=== PATIENT | male | born 1990 | race American Indian/Alaskan Native ===

== ENCOUNTER 2021-05-04 04:21 | Emergency (ER) | payer SELFPAY ==
[2021-05-04 04:45] VITALS: BP 122/76
--- NOTE | 2021-05-04 08:00 | Emergency Department Report ---
ED General Adult HPI - General Chief complaint: Urogenital-Male Stated complaint: POSSIBLE RECTAL PROLAPSE Time Seen by Provider: 05/04/21 07:55 Source: patient Mode of arrival: Ambulatory Limitations: No Limitations - History of Present Illness Initial comments: Patient is 30-year-old F [place] male who is presenting with some discomfort at his anus. He denies any bleeding or abdominal pain. Patient states he felt like something bulging out of his anus while having a bowel movement. States he also feels like a spasm type sensation at the anus as well. Patient is sexually active with men. Denies fevers chills dysuria or penile discharge. - Related Data Previous Rx's Medication Instructions Recorded Last Taken Type Pramoxine 1% [Proctofoam] 1 applic TN TID #12 foam 05/04/21 Unknown Rx ED Review of Systems ROS: Stated complaint: POSSIBLE RECTAL PROLAPSE Other details as noted in HPI Comment: All other systems reviewed and negative ED Past Medical Hx - Past Medical History Previous Medical History?: No - Surgical History Past Surgical History?: No - Medications Home Medications: Home Medications Medication Instructions Recorded Confirmed Last Taken Type Pramoxine 1% [Proctofoam] 1 applic TN TID #12 foam 05/04/21 Unknown Rx ED Physical Exam - General Limitations: No Limitations General appearance: alert, in no apparent distress - Head Head exam: Present: atraumatic, normocephalic - Eye Eye exam: Present: normal appearance - ENT ENT exam: Present: mucous membranes moist - Neck Neck exam: Present: normal inspection - Respiratory Respiratory exam: Present: normal lung sounds bilaterally. Absent: respiratory distress, wheezes, rales, rhonchi - Cardiovascular Cardiovascular Exam: Present: regular rate, normal rhythm. Absent: systolic murmur, diastolic murmur, rubs, gallop - GI/Abdominal GI/Abdominal exam: Present: soft, normal bowel sounds. Absent: distended, tenderness, guarding, rebound - Rectal Rectal exam: Present: deferred, normal inspection, normal rectal tone. Absent: hemorrhoids (No external hemorrhoids found.) - Extremities Exam Extremities exam: Present: normal inspection - Back Exam Back exam: Present: normal inspection - Neurological Exam Neurological exam: Present: alert, oriented X3 - Psychiatric Psychiatric exam: Present: normal affect, normal mood - Skin Skin exam: Present: warm, dry, intact, normal color. Absent: rash ED Course Vital Signs 05/04/21 04:41 Pulse Rate 95 H Respiratory 16 Rate Blood Pressure 122/76 [Left] O2 Sat by Pulse 97 Oximetry ED Medical Decision Making - Medical Decision Making Although no external hemorrhoid was found. It is possible the patient has internal hemorrhoid which did prolapse slightly during a bowel movement and then went back into the anus. We will start the patient on Proctofoam and have her follow GI if the problem persist. Critical care attestation.: If time is entered above; I have spent that time in minutes in the direct care of this critically ill patient, excluding procedure time. ED Disposition Clinical Impression: Internal hemorrhoid Disposition: 01 HOME / SELF CARE / HOMELESS Is pt being admited?: No Does the pt Need Aspirin: No Condition: Stable Instructions: Hemorrhoids, [id number] Prescriptions: Pramoxine 1% [Proctofoam] 1 applic TN TID #12 foam Referrals: [facility] [Provider Group] - 3-5 Days Time of Disposition: 07:59
== END 2021-05-04 08:30 | disposition home or self-care (01) ==
LOC: ED 04:21
DX: K64.9 Unspecified hemorrhoids (principal)
CPT/HCPCS: 99281; 99282